=== PATIENT | male | born 1995 | race Two or more races ===

== ENCOUNTER 2025-02-17 02:00 | Emergency (ER) | payer SELFPAY ==
[~2025-02-17] VITALS: Ht 180.3 cm; Wt 97.5 kg
[2025-02-17] MEDS ORDERED: IOHEXOL-300 100 ML VIAL IV ONE (03:46)
[2025-02-17] MEDS ORDERED: CT SWABBABLE VALVE TRANS SET 1 EA INFUS.SET MC ONE (03:46)
[2025-02-17] MEDS ORDERED: IV NS 0.9% 250 ML IV ONE (03:47)
[2025-02-17 03:58] LABS: PLATELET COUNT (AUTO) 218 K/uL (150-450); RED BLOOD CELL COUNT(AUTO) 4.94 MIL/uL (4.5-6.0); RED CELL DISTRIBUTION WIDTH 12.6 % (11.5-15.0); WHITE BLOOD COUNT (AUTO) 11.4 K/uL (4.3-11.0)
[2025-02-17 04:04] LABS: CALCIUM, SERUM 9.6 mg/dL (8.5-10.1); CREATININE 0.8 mg/dL (0.6-1.3); SODIUM SERUM 142 mmol/L (136-145); UREA NITROGEN, BLOOD 20 mg/dL (7-18)
[2025-02-17 04:10] LABS: ALCOHOL, BLOOD < 3 mg/dL (0-10); ASPARTATE AMINOTRANSFERASE 19 U/L (15-37); TOTAL PROTEIN, SERUM 7.6 g/dL (6.4-8.2)
[2025-02-17] MEDS ORDERED: KETOROLAC TROMETHAMINE INJ 30 MG/ML VIAL ONE (04:12)
[2025-02-17] MEDS: KETOROLAC TROMETHAMINE INJ 30 MG/ML VIAL IV ONE (04:12)
[2025-02-17 04:58] LABS: APPEARANCE,URINE CLEAR (CLEAR); BLOOD, URINE NEGATIVE Ery/uL (NEGATIVE); LEUKOCYTE ESTERASE ,URINE NEGATIVE (NEGATIVE); NITRITE, URINE NEGATIVE (NEGATIVE); UGLUCOSE NEGATIVE (NEGATIVE)
[2025-02-17 05:10] LABS: AMPHETAMINE, URINE NEGATIVE (NEGATIVE); BARBITURATE, URINE NEGATIVE (NEGATIVE); BENZODIAZEPINE, URINE NEGATIVE (NEGATIVE); CANNABINOID, URINE NEGATIVE (NEGATIVE); COCCAINE, URINE NEGATIVE (NEGATIVE); OPIATE, URINE NEGATIVE (NEGATIVE)
[2025-02-17] MEDS ORDERED: KETO10TA2 PO (05:49)
[2025-02-17 06:00] VITALS: BP 121/79; TEMP 98.8; O2SAT 98
== END 2025-02-17 06:01 | disposition home or self-care (01) ==
LOC: ER 02:03
DX: S00.93XA Contusion of unspecified part of head, initial encounter (principal); S20.219A Contusion of unspecified front wall of thorax, initial encounter; M54.2 Cervicalgia; M54.50 Low back pain, unspecified; R11.10 Vomiting, unspecified; V43.52XA Car driver injured in collision with other type car in traffic accident, initial encounter; Y93.89 Activity, other specified; Y92.488 Other paved roadways as the place of occurrence of the external cause; Y99.8 Other external cause status
CPT/HCPCS: 99285; 96374; 72125; 71260; 70450; 74177; 85025; 81003; 36415; 80053; 80320; 80307; J1885; J7050; Q9967; G0480